=== PATIENT | male | born 1975 ===

== ENCOUNTER 2020-10-24 18:16 | Emergency (ER) | payer MEDICAID ==
[~2020-10-24] VITALS: Ht 177.8 cm; Wt 90.7 kg
--- NOTE | 2020-10-24 19:15 | NUR ---
Recieved report from Madhu.
--- NOTE | 2020-10-24 20:20 | NUR ---
Patient given written and verbal discharge instructions. Patient verbalizes understanding of instructions. Patient is ambulatory with steady gait. Refuses offer of detention placement. Patient given list of available shelters in surrounding area. A/O x4, no SOB or labored breathing. Afebrile. IV line removed. Denies any n/v/d.
[2020-10-24 20:29] VITALS: BP 141/79
== END 2020-10-24 20:30 | disposition home or self-care (01) ==
LOC: ER 18:16
DX: Z00.8 Encounter for other general examination (principal); J45.909 Unspecified asthma, uncomplicated
CPT/HCPCS: A4663